=== PATIENT | female | born 1960 | race Caucasian/White ===

== ENCOUNTER 2023-02-22 12:38 | Emergency (ER) | payer OTHER ==
[2023-02-22 14:01] LABS: Specific Gravity 1.015 (1.005-1.030); Urine Bacteria 20-50 /HPF (<20); Urine Bilirubin NEGATIVE (Negative); Urine Blood 2+ (Negative); Urine Clarity Extremely Turbid (Clear); Urine Color Yellow (Yellow); Urine Glucose NEGATIVE (Negative); Urine Mucus Slight /HPF (None Seen); Urine Protein 2+ (Negative); Urine RBC 21-50 /HPF (None Seen); Urine Urobilinogen Normal (Normal); Urine WBC Clump Many /HPF (None Seen); Urine pH 5.5 (5.0-7.0)
--- NOTE | 2023-02-22 14:33 | EDPHYS ---
Physician Documentation [facility] Name: Fransisca Lee Age: 63 yrs Sex: Female : 1960 Arrival Date: 02/22/2023 Time: 12:38 Bed 18 Private MD: ED Physician Justyn Priest HPI: 02/22 13:08 Patient is a 63-year-old that has a history of increasing urinary frequency urgency and jr11 pain, states she is not having any flank pain or any systemic signs of infection. No fever, bowel movements normal. Patient states she has history of UTIs, feels like prior. Patient doing well otherwise review of system negative. Historical: - Allergies: 13:13 NKA; nj1 - PMHx: 13:13 CVA; Diabetes - NIDDM; Hypertension; chronic back pain; CKD; nj1 - PSHx: 13:13 Knee, ольга; nj1 - Immunization history:: Client reports receiving the 2nd dose of the Covid vaccine. - Social history:: Smoking status: Patient denies any tobacco usage or history of. ROS: 13:08 All other systems are negative. jr11 Exam: 13:08 Constitutional: This is a well developed, well nourished patient who is awake, alert, jr11 and in no acute distress. Head/Face: Normocephalic, atraumatic. Eyes: Extra-ocular motions intact. Lids and lashes normal. Conjunctiva and sclera are non-icteric and not injected. Cornea within normal limits. Periorbital areas with no swelling, redness, or edema. ENT: Nares patent. No nasal discharge, no septal abnormalities noted. Oropharynx with no redness, swelling, or masses, exudates, or evidence of obstruction, uvula midline. Mucous membranes moist. Neck: Trachea midline, no thyromegaly or masses palpated, and no cervical lymphadenopathy. Supple, full range of motion without nuchal rigidity, or vertebral point tenderness. No Meningismus. Chest/axilla: Normal chest wall appearance and motion. Nontender with no deformity. No lesions are appreciated. Cardiovascular: Regular rate and rhythm with a normal S1 and S2. No gallops, murmurs, or rubs. Normal PMI, no JVD. No pulse deficits. Respiratory: Lungs have equal breath sounds bilaterally, clear to auscultation and percussion. No rales, rhonchi or wheezes noted. No increased work of breathing, no retractions or nasal flaring. Back: No spinal tenderness. No costovertebral tenderness. Full range of motion. Skin: Warm, dry with normal turgor. Normal color with no rashes, no lesions, and no evidence of cellulitis. MS/ Extremity: Pulses equal, no cyanosis. Neurovascular intact. Full, normal range of motion. Neuro: Awake and alert, GCS 15, oriented to person, place, time, and situation. No gross motor or sensory deficits. Vital Signs: 13:11 BP 201 / 89; Pulse 72; Resp 18; Temp 99.4(O); Pulse Ox 99% on R/A; Weight 96.16 kg (R); nj1 Height 5 ft. 2 in. ; 13:15 BP 201 / 55; Pulse 59; Resp 16; Pulse Ox 99% on R/A; db 14:00 BP 171 / 68; Pulse 57; Resp 16; Pulse Ox 96% on R/A; db 14:30 BP 177 / 71; Pulse 59; Resp 16; Pulse Ox 96% on R/A; db 13:11 Body Mass Index 38.77 (96.16 kg, 157.48 cm) nj1 MDM: 13:08 Patient medically screened. [facility] 13:08 Differential diagnosis: urinary tract infection, Patient with urinary symptoms, doubt jr11 pyelonephritis, no CVAT. Consider imaging however she is not having any flank pain. CT not indicated at this time. Abdomen soft benign. Data reviewed: vital signs, nurses notes. 14:32 ED course: Pt with UTI to f/u PCP. [facility] 02/22 13:08 Order name: UAM; Complete Time: 14:31 [facility] 02/22 14:19 Order name: Urine Culture EDMS Administered Medications: 14:50 Drug: Cephalexin PO 500 mg Route: PO; db 15:10 Follow up: Response: No adverse reaction db Disposition Summary: 02/22/23 14:33 Discharge Ordered Location: Home [facility] Condition: Stable [facility] Diagnosis - UTI/ Urinary tract infection, site not specified jr11 Discharge Instructions: - Discharge Summary Sheet jr11 - Urinary Tract Infection, Adult jr11 Forms: - Medication Reconciliation Form jr11 - Thank You Letter jr11 - Antibiotic Education jr11 - Prescription Opioid Use jr11 - Patient Portal Instructions jr11 - Leadership Thank You Letter jr11 Prescriptions: - Cephalexin 500 mg Oral Capsule - take 1 capsule by ORAL route every 8 hours for 10 days; 30 capsule; Refills: 0, jr11 Product Selection Permitted Signatures: Dispatcher [employer] Justyn Delaney MD MD jr11 Jessica Ling, RN RN db Marivel Winters RN RN nj1
--- NOTE | 2023-02-22 14:33 | ER ---
Nurse's Notes [facility] Name: Fransisca Lee Age: 63 yrs Sex: Female : 1960 Arrival Date: 02/22/2023 Time: 12:38 Bed 18 Private MD: Diagnosis: UTI/ Urinary tract infection, site not specified Presentation: 02/22 13:11 Chief complaint: Patient states: Dysuria since Friday. Concerned she may have a UTI. [facility] Coronavirus screen: Vaccine status: Patient reports receiving the 2nd dose of the covid vaccine. Ebola Screen: Patient denies travel to an Ebola-affected area in the 21 days before illness onset. Initial Sepsis Screen: Does the patient meet any 2 criteria? No. Patient's initial sepsis screen is negative. Does the patient have a suspected source of infection? No. Patient's initial sepsis screen is negative. Risk Assessment: Do you want to hurt yourself or someone else? Patient reports no desire to harm self or others. Onset of symptoms was February 21, 2023. 13:11 Method Of Arrival: Ambulatory [facility] 13:11 Acuity: GLEN 3 [facility] Historical: - Allergies: 13:13 NKA; nj1 - PMHx: 13:13 CVA; Diabetes - NIDDM; Hypertension; chronic back pain; CKD; nj1 - PSHx: 13:13 Knee, ольга; nj1 - Immunization history:: Client reports receiving the 2nd dose of the Covid vaccine. - Social history:: Smoking status: Patient denies any tobacco usage or history of. Screenin:15 [facility] ED Fall Risk Assessment (Adult) History of falling in the last 3 months, db including since admission No falls in past 3 months (0 pts) Confusion or Disorientation No (0 pts) Intoxicated or Sedated No (0 pts) Impaired Gait No (0 pts) Mobility Assist Device Used No (0 pt) Altered Elimination No (0 pt) Score/Fall Risk Level 0 - 2 = Low Risk Oriented to surroundings, Maintained a safe environment. Abuse screen: Denies threats or abuse. Denies injuries from another. Nutritional screening: No deficits noted. Tuberculosis screening: No symptoms or risk factors identified. Assessment: 13:18 Reassessment: Patient appears in no apparent distress at this time. Patient and/or db family updated on plan of care and expected duration. Pain level reassessed. Patient is alert, oriented x 3, equal unlabored respirations, skin warm/dry/pink. General: Appears in no apparent distress. comfortable, Behavior is calm, cooperative. Pain: Complains of pain in WITH URINATION. Neuro: Level of Consciousness is awake, alert, obeys commands, Oriented to person, place, time, situation. Respiratory: Airway is patent Respiratory effort is even, unlabored, Respiratory pattern is regular, symmetrical. : Urine is cloudy, Reports burning with urination, since YESTERDAY. 15:00 Reassessment: Patient appears in no apparent distress at this time. Patient and/or db family updated on plan of care and expected duration. Pain level reassessed. Patient is alert, oriented x 3, equal unlabored respirations, skin warm/dry/pink. Vital Signs: 13:11 BP 201 / 89; Pulse 72; Resp 18; Temp 99.4(O); Pulse Ox 99% on R/A; Weight 96.16 kg (R); nj1 Height 5 ft. 2 in. ; 13:15 BP 201 / 55; Pulse 59; Resp 16; Pulse Ox 99% on R/A; db 14:00 BP 171 / 68; Pulse 57; Resp 16; Pulse Ox 96% on R/A; db 14:30 BP 177 / 71; Pulse 59; Resp 16; Pulse Ox 96% on R/A; db 13:11 Body Mass Index 38.77 (96.16 kg, 157.48 cm) nj1 ED Course: 12:39 Patient arrived in ED. ts1 12:54 Justyn Priest MD is Attending Physician. jr11 13:13 Triage completed. nj1 13:14 Arm band placed on left wrist. nj1 13:15 Patient has correct armband on for positive identification. Bed in low position. Call db light in reach. Side rails up X 1. 13:15 Urine collected: clean catch specimen, cloudy. db 13:17 Jessica Ling, CLINT is Primary Nurse. db 14:00 Patient did not have IV access during this emergency room visit. db 15:00 Provided Education on: DISCHARGE. db 15:00 No provider procedures requiring assistance completed. db Administered Medications: 14:50 Drug: Cephalexin PO 500 mg Route: PO; db 15:10 Follow up: Response: No adverse reaction db Medication: 13:15 VIS not applicable for this client. db Outcome: 14:00 Condition: stable db 14:33 Discharge ordered by . jr11 14:55 Discharged to home ambulatory, with family. db 14:55 Discharge instructions given to patient, family, Instructed on discharge instructions, follow up and referral plans. Prescriptions given X 1. 15:12 Patient left the ED. db Signatures: Justyn Priest MD MD jr11 Jessica Ling RN RN db Marivel Winters RN RN nj1 Jesenia Crawley PAS PAS ts1 Corrections: (The following items were deleted from the chart) 15:13 14:00 Provided Education on: DISCHARGE. db db 15: 14:00 No provider procedures requiring assistance completed. db db 15: 14:00 Discharged to home ambulatory, with family, db db 15: 14:00 Discharge instructions given to patient, family, Instructed on discharge db instructions, follow up and referral plans. Prescriptions given X 1, db 15:14 15:00 Discharge instructions given to patient, family, Instructed on discharge db instructions, follow up and referral plans. Prescriptions given X 1, db 15:14 15:00 Discharged to home ambulatory, with family, db db
[2023-02-22] MEDS ORDERED: CEPHALEXIN 250 MG CAP ONE (15:03)
[2023-02-22 15:16] VITALS: TEMP 99.4
[2023-02-22 15:19] VITALS: O2SAT 96
[2023-02-22 15:20] VITALS: BP 177/71
== END 2023-02-22 15:12 | disposition home or self-care (01) ==
LOC: ER 12:38
DX: N39.0 Urinary tract infection, site not specified (principal); E11.9 Type 2 diabetes mellitus without complications; I10 Essential (primary) hypertension; N18.9 Chronic kidney disease, unspecified; Z86.73 Personal history of transient ischemic attack (TIA), and cerebral infarction without residual deficits
CPT/HCPCS: 81001; 87077; 87086; 87088; 87186; 99284

== ENCOUNTER → 2023-08-09 | Emergency (ER) | payer OTHER ==
[~2023-08-09] MED LIST: KETOROLAC 30 MG/ML INJ ONE
--- NOTE | 2023-08-09 14:26 | RAD REPORT ---
EXAM DESCRIPTION: RAD - Foot Right 3 View - 08/09/2023 2:09 pm CLINICAL HISTORY: Pain;Smash injury COMPARISON: No comparisons FINDINGS: Diffuse osteopenia is present. Large posterior and plantar calcaneal spurs. No fracture or dislocation.
--- NOTE | 2023-08-09 14:35 | EDPHYS ---
Physician Documentation [facility] Name: Fransisca Lee Age: 63 yrs Sex: Female : 1960 Arrival Date: 08/09/2023 Time: 13:05 Bed 12 Private MD: ED Physician Corina Howell HPI: 08/09 14:29 This 63 yrs old Female presents to ER via Wheelchair with complaints of Foot Pain. snw 14:29 The patient presents with a crush injury, from a heavy object. The complaints affect snw the dorsum of right foot. Context: The problem was sustained at home, resulted from a crush injury, from a heavy object, the patient can partially bear weight, can ambulate using a cane. Onset: The symptoms/episode began/occurred acutely, 2 day(s) ago, and became persistent. Severity of symptoms: At their worst the symptoms were moderate. It is unknown whether or not the patient has had similar symptoms in the past. It is unknown whether or not the patient has recently seen a physician. Historical: - Allergies: 13:17 NKA; hb - PMHx: 13:17 CKD; Diabetes - NIDDM; chronic back pain; CVA; Hypertension; hb - PSHx: 13:17 Knee; hb - Immunization history:: Adult Immunizations up to date. - Social history:: Smoking status: Patient denies any tobacco usage or history of. ROS: 14:30 Constitutional: Negative for fever, chills, and weight loss, Eyes: Negative for injury, snw pain, redness, and discharge, ENT: Negative for injury, pain, and discharge, Neck: Negative for injury, pain, and swelling, Cardiovascular: Negative for chest pain, palpitations, and edema, Respiratory: Negative for shortness of breath, cough, wheezing, and pleuritic chest pain, Abdomen/GI: Negative for abdominal pain, nausea, vomiting, diarrhea, and constipation, Back: Negative for injury and pain, : Negative for injury, bleeding, discharge, and swelling, Skin: Negative for injury, rash, and discoloration, Neuro: Negative for headache, weakness, numbness, tingling, and seizure, Psych: Negative for depression, anxiety, suicide ideation, homicidal ideation, and hallucinations, 14:30 MS/extremity: Positive for injury or acute deformity, decreased range of motion, pain, unable to bear weight on right foot, Exam: 14:32 Head/Face: Normocephalic, atraumatic. Eyes: Pupils equal round and reactive to light, snw extra-ocular motions intact. Lids and lashes normal. Conjunctiva and sclera are non-icteric and not injected. Cornea within normal limits. Periorbital areas with no swelling, redness, or edema. ENT: Nares patent. No nasal discharge, no septal abnormalities noted. Tympanic membranes are normal and external auditory canals are clear. Oropharynx with no redness, swelling, or masses, exudates, or evidence of obstruction, uvula midline. Mucous membranes moist. Neck: Trachea midline, no thyromegaly or masses palpated, and no cervical lymphadenopathy. Supple, full range of motion without nuchal rigidity, or vertebral point tenderness. No Meningismus. Chest/axilla: Normal chest wall appearance and motion. Nontender with no deformity. No lesions are appreciated. Cardiovascular: Regular rate and rhythm with a normal S1 and S2. No gallops, murmurs, or rubs. Normal PMI, no JVD. No pulse deficits. Respiratory: Lungs have equal breath sounds bilaterally, clear to auscultation and percussion. No rales, rhonchi or wheezes noted. No increased work of breathing, no retractions or nasal flaring. Abdomen/GI: Soft, non-tender, with normal bowel sounds. No distension or tympany. No guarding or rebound. No evidence of tenderness throughout. Back: No spinal tenderness. No costovertebral tenderness. Full range of motion. Skin: Warm, dry with normal turgor. Normal color with no rashes, no lesions, and no evidence of cellulitis. Neuro: Awake and alert, GCS 15, oriented to person, place, time, and situation. Cranial nerves II-XII grossly intact. Motor strength 5/5 in all extremities. Sensory grossly intact. Cerebellar exam normal. Normal gait. Psych: Awake, alert, with orientation to person, place and time. Behavior, mood, and affect are within normal limits. 14:32 Constitutional: The patient appears alert, awake, deconditioned 14:32 Musculoskeletal/extremity: Extremities: grossly normal except: noted in the : contusion, swelling, tenderness, Vital Signs: 13:15 BP 129 / 45; Pulse 69; Resp 16; Temp 98.3; Pulse Ox 95% on R/A; Weight 93.44 kg; Height hb 5 ft. 2 in. ; Pain 10/10; 13:15 Body Mass Index 37.68 (93.44 kg, 157.48 cm) hb 13:15 Pain Scale: Adult hb MDM: 13:21 Patient medically screened. snw 14:28 Differential diagnosis: closed fracture, contusion, abrasion, tendonitis. Data snw reviewed: vital signs, nurses notes. I considered the following discharge prescriptions or medication management in the emergency department Medications were administered in the Emergency Department. See MAR. Historians other than the Patient: Spouse/Significant Other: . Counseling: I had a detailed discussion with the patient and/or guardian regarding the historical points, exam findings, and any diagnostic results supporting the discharge/admit diagnosis, radiology results, the need for outpatient follow up, for definitive care, to return to the emergency department if symptoms worsen or persist or if there are any questions or concerns that arise at home. Special discussion: Based on the history and exam findings, there is no indication for further emergent testing or inpatient evaluation. I discussed with the patient/guardian the need to see the primary care provider for further evaluation of the symptoms. 14:33 Response to treatment: the patient's symptoms have mildly improved after treatment. snw 08/09 13:20 Order name: Foot Right 3 View XRAY; Complete Time: 14:27 snw 08/09 14:28 Order name: Walking boot; Complete Time: 14:55 snw Administered Medications: 14:18 Drug: Ketorolac IM 15 mg IM once Route: IM; Site: right gluteus; cm10 14:55 Follow up: Response: No adverse reaction; Pain is decreased cm10 Disposition Summary: 08/09/23 14:34 Discharge Ordered Notes: Location: Home snw Condition: Stable snw Diagnosis - Contusion of foot snw Followup: snw - With: Emergency Department - When: As needed - Reason: Worsening of condition Followup: snw - With: Private Physician - When: 2 - 3 days - Reason: Recheck today's complaints, Continuance of care, Re-evaluation by your physician Discharge Instructions: - Discharge Summary Sheet snw - Contusion snw Forms: - Medication Reconciliation Form snw - Thank You Letter snw - Antibiotic Education snw - Prescription Opioid Use snw - Patient Portal Instructions snw - Leadership Thank You Letter snw Prescriptions: - Mobic 7.5 mg Oral tablet - take 1 tablet ORAL route once daily take with food; 10 tablet; Refills: 0, snw Product Selection Permitted Signatures: Dispatcher [employer] EDTaisha Nuñez FNP-C INTAKE MANAGER-Csnw Giovana Leiva RN RN Corina Howell MD MD sp3 Selene Serna RN RN cm10 Corrections: (The following items were deleted from the chart) 13:17 13:17 Allergies: cellulitis; hb hb 13:17 13:17 PSHx: Knee; hb hb
--- NOTE | 2023-08-09 14:35 | ER ---
Nurse's Notes [facility] Name: Fransisca Lee Age: 63 yrs Sex: Female : 1960 Arrival Date: 08/09/2023 Time: 13:05 Bed 12 Private MD: Diagnosis: Contusion of foot Presentation: 08/09 13:15 Chief complaint: Dog stepped on right foot 2 days ago, c/o pain 10. Coronavirus screen: hb At this time, the client does not indicate any symptoms associated with coronavirus-19. Ebola Screen: No symptoms or risks identified at this time. Initial Sepsis Screen: Does the patient meet any 2 criteria? No. Patient's initial sepsis screen is negative. Does the patient have a suspected source of infection? No. Patient's initial sepsis screen is negative. Risk Assessment: Do you want to hurt yourself or someone else? Patient reports no desire to harm self or others. Onset of symptoms was August 07, 2023. 13:15 Method Of Arrival: Wheelchair hb 13:15 Acuity: GLEN 4 hb Historical: - Allergies: 13:17 NKA; hb - PMHx: 13:17 CKD; Diabetes - NIDDM; chronic back pain; CVA; Hypertension; hb - PSHx: 13:17 Knee; hb - Immunization history:: Adult Immunizations up to date. - Social history:: Smoking status: Patient denies any tobacco usage or history of. Screenin:20 [facility] ED Fall Risk Assessment (Adult) Score/Fall Risk Level 0 - 2 = Low Risk hb Oriented to surroundings, Maintained a safe environment, Educated pt \T\ family on fall prevention, incl call for assistance when getting out of bed. Abuse screen: Denies threats or abuse. Denies injuries from another. Nutritional screening: No deficits noted. Tuberculosis screening: No symptoms or risk factors identified. Assessment: 13:20 General: Appears in no apparent distress. Behavior is calm, cooperative. Pain: Pain hb currently is 10 out of 10 on a pain scale. Neuro: Level of Consciousness is awake, alert, obeys commands, Oriented to person, place, time, situation. Cardiovascular: Patient's skin is warm and dry. Respiratory: Respiratory effort is even, unlabored, Respiratory pattern is regular, symmetrical. GI: No signs and/or symptoms were reported involving the gastrointestinal system. : No signs and/or symptoms were reported regarding the genitourinary system. EENT: No signs and/or symptoms were reported regarding the EENT system. Derm: Skin is pink, warm \T\ dry. Musculoskeletal: Reports severe right foot pain. 14:55 Reassessment: No changes from previously documented assessment. Patient and/or family cm10 updated on plan of care and expected duration. Pain level reassessed. Patient states feeling better. Patient states symptoms have improved. Vital Signs: 13:15 BP 129 / 45; Pulse 69; Resp 16; Temp 98.3; Pulse Ox 95% on R/A; Weight 93.44 kg; Height hb 5 ft. 2 in. ; Pain 10/10; 13:15 Body Mass Index 37.68 (93.44 kg, 157.48 cm) hb 13:15 Pain Scale: Adult hb ED Course: 13:08 Patient arrived in ED. mg5 13:12 Taisha Bartlett FNP-C is [facility]. snw 13:12 Corina Howell MD is Attending Physician. snw 13:17 Triage completed. hb 13:17 Arm band placed on. hb 13:20 Patient has correct armband on for positive identification. Provided Education on: hb tests, result times. 13:20 No provider procedures requiring assistance completed. Patient did not have IV access hb during this emergency room visit. 13:30 Giovana Leiva, RN is Primary Nurse. hb 14:11 Foot Right 3 View XRAY In Process Unspecified. EDMS 14:55 3D boot applied to right foot. cm10 Administered Medications: 14:18 Drug: Ketorolac IM 15 mg IM once Route: IM; Site: right gluteus; cm10 14:55 Follow up: Response: No adverse reaction; Pain is decreased cm10 Medication: 13:20 VIS not applicable for this client. hb Outcome: 14:34 Discharge ordered by MD. snw 14:55 Discharged to home ambulatory, with family, cm10 14:55 Condition: good 14:55 Discharge instructions given to patient, significant other, Instructed on discharge instructions, follow up and referral plans. medication usage, Demonstrated understanding of instructions, follow-up care, medications, Prescriptions given X 1, 14:56 Patient left the ED. cm10 Signatures: Dispatcher [employer] EDMS Taisha Bartlett FNP-C FNP-Csnw Giovana Leiva RN RN hb Selene Serna RN RN cm10 Gayatri Farnsworth mg5 Corrections: (The following items were deleted from the chart) Allergies: cellulitis; hb hb PSHx: Knee; hb hb
[2023-08-09 15:01] VITALS: BP 129/45; TEMP 98.3; O2SAT 95
== END ==
LOC: ER 13:05
DX: S90.31XA Contusion of right foot, initial encounter (principal)

== ENCOUNTER 2024-11-20 15:42 | Emergency (ER) | payer OTHER ==
--- NOTE | 2024-11-20 17:45 | RAD REPORT ---
Extremity Venous Uni Ltd CLINICAL INDICATION: Female, 64 years old.PAIN RIGHT TECHNIQUE: Complete duplex sonography of the lower extremity veins was performed of the affected limb . The examination included compression for vein patency, color Doppler imaging and flow augmentation in response to distal compression of the distal external iliac, common femoral, femoral, popliteal, peroneal, tibial and great saphenous veins. [id number]. COMPARISON: No prior exams FINDINGS: Duplex sonography imaging demonstrates all deep veins examined to be fully compressible with spontane ous, phasic and augmented flow in the affected limb. Thrombosis of a superficial vein in the posterior calf consistent with the greater saphenous vein. IMPRESSION: No evidence of deep venous thrombosis in the right lower extremity. Thrombosis of the right greater saphenous vein at its superficial portion (not a deep vein).
--- NOTE | 2024-11-20 17:49 | RAD REPORT ---
EXAM: Lower Extremity Artery [employer] HISTORY: PAIN RIGHT COMPARISON: None TECHNIQUE: Multiplanar grayscale and color Doppler images were obtained and a right lower extremity a rterial ultrasound. Spectral analysis of the Doppler waveforms were performed. FINDINGS: Right lower extremity: Common femoral artery: Triphasic Superficial femoral artery: Occlusion of the SFA just beyond the origin. This is probably a long segm ent occlusion. Popliteal artery: Monophasic Posterior tibial artery: Monophasic Dorsalis pedis artery: Monophasic IMPRESSION: Long segment right SFA occlusion with some collateral flow to the popliteal, posterior tibial, and do rsalis pedis arteries which demonstrate monophasic waveforms.
--- NOTE | 2024-11-20 18:20 | ER ---
Nurse's Notes [facility] Name: Fransisca Lee Age: 64 yrs Sex: Female : 1960 Arrival Date: 11/20/2024 Time: 15:42 Bed 9 Private MD: Diagnosis: Phlebitis and thrombophlebitis of superficial vessels of right lower extremity;Peripheral arterial disease with claudication Presentation: 11/20 15:52 Chief complaint: Patient states: R leg pain and swelling for 1 week. Here to check for ll1 DVT. Coronavirus screen: Client denies travel out of the [place] in the last 14 days. At this time, the client does not indicate any symptoms associated with coronavirus-19. Ebola Screen: Patient denies travel to an Ebola-affected area in the 21 days before illness onset. Initial Sepsis Screen: Does the patient meet any 2 criteria? No. Patient's initial sepsis screen is negative. Does the patient have a suspected source of infection? No. Patient's initial sepsis screen is negative. Risk Assessment: Do you want to hurt yourself or someone else? Patient reports no desire to harm self or others. Onset of symptoms was November 13, 2024. 15:52 Method Of Arrival: Wheelchair ll1 15:52 Acuity: GLEN 3 ll1 Triage Assessment: 15:53 General: Appears uncomfortable, Behavior is calm, cooperative, appropriate for age. ll1 Pain: Complains of pain in right leg. Musculoskeletal: Reports pain in right leg. Historical: - Allergies: 15:53 NKA; ll1 - PMHx: 15:53 chronic back pain; CKD; CVA; Diabetes - NIDDM; Hypertension; ll1 - PSHx: 15:53 hysterectomy (Hypertension); B knee surgery (Hypertension); ll1 - Immunization history:: Adult Immunizations up to date. - Infectious Disease History:: Denies. - Social history:: Smoking status: Patient denies any tobacco usage or history of. - Family history:: not pertinent. - Hospitalizations: : No recent hospitalization is reported. Screenin:00 [facility] ED Fall Risk Assessment (Adult) History of falling in the last 3 months, hb including since admission No falls in past 3 months (0 pts) Confusion or Disorientation No (0 pts) Intoxicated or Sedated No (0 pts) Impaired Gait No (0 pts) Mobility Assist Device Used No (0 pt) Altered Elimination No (0 pt) Score/Fall Risk Level 0 - 2 = Low Risk Oriented to surroundings, Maintained a safe environment, Educated pt \T\ family on fall prevention, incl call for assistance when getting out of bed. Abuse screen: Denies threats or abuse. Denies injuries from another. Nutritional screening: No deficits noted. Tuberculosis screening: No symptoms or risk factors identified. Assessment: 16:43 Reassessment: Patient and/or family updated on plan of care and expected duration. Pain ll1 level reassessed. 17:00 General: Appears in no apparent distress. Behavior is calm, cooperative. Neuro: GCS 15. hb Cardiovascular: Patient's skin is warm and dry. Respiratory: Respiratory effort is even, unlabored, Respiratory pattern is regular, symmetrical. Musculoskeletal: Reports RLE pain. 18:55 Reassessment: No changes from previously documented assessment. Patient and/or family ll1 updated on plan of care and expected duration. Pain level reassessed. Patient is alert, oriented x 3, equal unlabored respirations, skin warm/dry/pink. Vital Signs: 15:52 BP 180 / 65; Pulse 84; Resp 17; Temp 97.6; Pulse Ox 99% ; Weight 95.25 kg; Height 5 ft. ll1 2 in. ; Pain 6/10; 18:55 BP 157 / 65; Pulse 68; Resp 17; Pulse Ox 99% ; ll1 15:52 Body Mass Index 38.41 (95.25 kg, 157.48 cm) ll1 15:52 Pain Scale: Adult ll1 ED Course: 15:48 Patient arrived in ED. sj2 15:53 Triage completed. ll1 15:54 Arm band placed on. ll1 15:58 Evan Munson MD is Attending Physician. rn 16:43 Patient placed in an exam room, on a stretcher. ll1 17:00 Patient has correct armband on for positive identification. Bed in low position. Call hb light in reach. Provided Education on: POC. 17:28 Extremity Venous [employer] US In Process Unspecified. EDMS 17:28 Lower Extremity Artery [employer] US In Process Unspecified. EDMS 18:55 No provider procedures requiring assistance completed. Patient did not have IV access ll1 during this emergency room visit. Administered Medications: No medications were administered Medication: 17:00 VIS not applicable for this client. Outcome: 18:20 Discharge ordered by . rn 18:55 Patient left the ED. ll1 18:55 Discharged to home via wheelchair, ll1 18:55 Condition: stable 18:55 Discharge instructions given to patient, family, Instructed on discharge instructions, follow up and referral plans. Demonstrated understanding of instructions, follow-up care, Signatures: Dispatcher [employer] EDMS Evan Munson MD MD rn Baxter, Heather, RN RN hb Lewis, Lynsay, RN RN ll1 Kenneth Lazar sj2 Corrections: (The following items were deleted from the chart) 16:43 15:52 Pulse 84bpm; Resp 17bpm; Pulse Ox 99%; Temp 97.6F; 95.25 kg; Height 5 ft. 2 in.; ll1 BMI: 38.4; Pain 6/10, Adult; ll1
--- NOTE | 2024-11-20 18:20 | EDPHYS ---
Physician Documentation [facility] Name: Fransisca Lee Age: 64 yrs Sex: Female : 1960 Arrival Date: 11/20/2024 Time: 15:42 Bed 9 Private MD: ED Physician Evan Munson HPI: 11/20 17:07 This 64 yrs old Female presents to ER via Wheelchair with complaints of Leg Pain, Leg rn Swelling. 17:07 The patient presents with pain. The complaints affect the right calf. Onset: The rn symptoms/episode began/occurred 1 week(s) ago. Patient reports pain to right calf for about a week. No injury. No history of DVT or PE. Patient states long road trip but pain was present prior to that. Feels a knot in right calf. No history of cancer. Patient does report decreased ambulation due to chronic knee pain bilaterally. Went to urgent care and sent over here for ultrasound to rule out DVT.. Historical: - Allergies: 15:53 NKA; ll1 - PMHx: 15:53 chronic back pain; CKD; CVA; Diabetes - NIDDM; Hypertension; ll1 - PSHx: 15:53 hysterectomy (Hypertension); B knee surgery (Hypertension); ll1 - Immunization history:: Adult Immunizations up to date. - Infectious Disease History:: Denies. - Social history:: Smoking status: Patient denies any tobacco usage or history of. - Family history:: not pertinent. - Hospitalizations: : No recent hospitalization is reported. ROS: 17:07 Constitutional: Negative for fever, chills, and weight loss, Respiratory: Negative for rn shortness of breath, cough, wheezing, and pleuritic chest pain, MS/Extremity: Positive for pain to right lower extremity Skin: Negative for injury, rash, and discoloration, Neuro: Negative for headache, weakness, numbness, tingling, and seizure, Exam: 17:07 Constitutional: This is a well developed, well nourished patient who is awake, alert, rn and in no acute distress. Cardiovascular: Regular rate and rhythm . No pulse deficits. Respiratory: Speaking full sentences, unlabored. Skin: Warm, dry, no evidence of cellulitis. No cyanosis MS/ Extremity: Pulses equal, no cyanosis. Neurovascular intact. Mild tenderness right mid calf. No tenderness popliteal fossa. Vital Signs: 15:52 BP 180 / 65; Pulse 84; Resp 17; Temp 97.6; Pulse Ox 99% ; Weight 95.25 kg; Height 5 ft. ll1 2 in. ; Pain 6/10; 18:55 BP 157 / 65; Pulse 68; Resp 17; Pulse Ox 99% ; ll1 15:52 Body Mass Index 38.41 (95.25 kg, 157.48 cm) ll1 15:52 Pain Scale: Adult ll1 MDM: 15:58 Medical Screening Exam initiated rn 18:16 Differential diagnosis: Arterial insufficiency, DVT, superficial venous thrombosis, rn thrombophlebitis. Data reviewed: vital signs, nurses notes, radiologic studies, doppler, and as a result, I will discharge patient. Counseling: I had a detailed discussion with the patient and/or guardian regarding the historical points, exam findings, and any diagnostic results supporting the discharge/admit diagnosis, radiology results, the need for outpatient follow up, to return to the emergency department if symptoms worsen or persist or if there are any questions or concerns that arise at home. Special discussion: I discussed with the patient/guardian in detail that at this point there is no indication for admission to the hospital. It is understood, however, that if the symptoms persist or worsen the patient needs to return immediately for re-evaluation. Based on the history and exam findings, there is no indication for further emergent testing or inpatient evaluation. Vascular. ED course: Ultrasound negative for DVT. Shows superficial venous thrombosis. Arterial ultrasound also shows monophasic flow with collateral circulation beyond SFA partial occlusion. Not acute finding. But could explain claudication findings. Will discharge with vascular follow-up and recommend baby aspirin until then.. 11/20 16:06 Order name: Extremity Venous [employer] US; Complete Time: 18:05 rn 11/20 16:06 Order name: Lower Extremity Artery [employer] US; Complete Time: 18:05 rn Administered Medications: No medications were administered Disposition Summary: 11/20/24 18:20 Discharge Ordered Notes: Location: Home rn Problem: new rn Symptoms: have improved rn Condition: Stable rn Diagnosis - Phlebitis and thrombophlebitis of superficial vessels of right lower extremity rn - Peripheral arterial disease with claudication rn Followup: rn - With: Private Physician - When: As needed - Reason: Recheck today's complaints, Re-evaluation by your physician Discharge Instructions: - Discharge Summary Sheet rn - Intermittent Claudication rn - Thrombophlebitis rn Forms: - Medication Reconciliation Form rn - Antibiotic harness cleaner - Prescription Opioid Use rn - Patient Portal Instructions rn - Leadership Thank You Letter rn Signatures: Dispatcher [employer] EDMS Evan Munson MD MD rn Baxter, Heather, RN RN hb Lewis, Lynsay, RN RN ll1 Corrections: (The following items were deleted from the chart) 16:06 16:06 Extremity Venous [employer]+[email or web address] ordered. EDMS EDMS 16:06 16:06 Lower Extremity Artery [employer]+[email or web address] ordered. EDMS EDMS
[2024-11-20 19:24] VITALS: TEMP 99.8
[2024-11-20 19:33] VITALS: BP 136/81; O2SAT 98
== END 2024-11-20 18:55 | disposition home or self-care (01) ==
LOC: ER 15:42
DX: I80.01 Phlebitis and thrombophlebitis of superficial vessels of right lower extremity (principal); I73.9 Peripheral vascular disease, unspecified
CPT/HCPCS: 93926; 93971; 99282